=== PATIENT | male | born 1995 | race Two or more races ===

== ENCOUNTER → 2018-01-11 | Emergency (ER) | payer OTHER ==
[~2018-01-11] VITALS: Ht 170.2 cm; Wt 62.6 kg
[~2018-01-11] MED LIST: VISTARIL50 MG PO
== END | disposition home or self-care (01) ==
LOC: ER 22:25
DX: R07.89 Other chest pain (principal); F06.4 Anxiety disorder due to known physiological condition

== ENCOUNTER 2018-07-22 05:11 | Emergency (ER) | payer OTHER ==
[~2018-07-22] VITALS: Ht 170.2 cm; Wt 62.6 kg
[2018-07-22] MEDS ORDERED: KETO10TA2 PO (07:54)
[2018-07-22] MEDS ORDERED: ORPHENADRINE C100 MG PO (07:54)
== END 2018-07-22 07:58 | disposition home or self-care (01) ==
LOC: ER 05:11
DX: S20.212A Contusion of left front wall of thorax, initial encounter (principal); S20.211A Contusion of right front wall of thorax, initial encounter; V49.9XXA Car occupant (driver) (passenger) injured in unspecified traffic accident, initial encounter; Y93.89 Activity, other specified; Y92.488 Other paved roadways as the place of occurrence of the external cause; Y99.8 Other external cause status